=== PATIENT | female | born 1990 | race Caucasian/White ===

== ENCOUNTER 2017-06-04 07:40 | Emergency (ER) | payer OTHER ==
[2017-06-04 07:55] VITALS: TEMP 98.2
--- NOTE | 2017-06-04 07:57 | EDPHY ---
H & P Stated Complaint: Fall on ice last night. LOC Now dizzy, ringing in ears Time Seen by Provider: 06/04/17 07:56 HPI/ROS: CHIEF COMPLAINT: Headache and neck pain following a mechanical fall HISTORY OF PRESENT ILLNESS: The patient presents to the ED with complaints of occipital headache and neck pain after she slipped and fell on the ice last night. The patient fell backwards striking her occipital skull. She is uncertain whether she had a loss of consciousness. The patient does report some tenderness. She reports mild nausea and a moderate headache. The patient denies any focal numbness or weakness. She denies any chest pain, back pain, extremity pain or additional complaints. REVIEW OF SYSTEMS: A comprehensive 10 point review of systems is otherwise negative aside from elements mentioned in the history of present illness. Source: Patient Exam Limitations: No limitations - Personal History LMP (Females 10-55): 22-28 Days Ago Current Tetanus/Diphtheria Vaccine: Yes Current Tetanus Diphtheria and Acellular Pertussis (TDAP): Yes - Medical/Surgical History Hx Asthma: Yes Hx Chronic Respiratory Disease: No Hx Diabetes: No Hx Cardiac Disease: No Hx Renal Disease: No Hx Cirrhosis: No Hx Alcoholism: No Hx HIV/AIDS: No Hx Splenectomy or Spleen Trauma: No Other PMH: Denies - Social History Smoking Status: Never smoked - Physical Exam Exam: General Appearance: Alert, no distress Head: Occipital tenderness to palpation, small scalp hematoma Eyes: Pupils equal, round, reactive ENT, Mouth: No hemotympanum, no oral trauma Neck: Tenderness to palpation in the mid cervical region, poorly localized Respiratory: No chest wall tender, subcutaneous air, lungs clear bilaterally Cardiovascular: Regular rate and rhythm Abdomen: Abdomen is soft and nontender, pelvis stable Skin: No lacerations, No abrasion Back: No midline T/L/S pain Extremities: Nontender, full range of motion Neurological: A&Ox3, normal motor function, normal sensory exam Constitutional: Initial Vital Signs Temperature (C) 36.8 C 06/04/17 07:51 Heart Rate 85 06/04/17 07:51 Respiratory Rate 17 06/04/17 07:51 Blood Pressure 118/83 H 06/04/17 07:51 O2 Sat (%) 98 06/04/17 07:51 O2 Delivery Mode Room Air Allergies/Adverse Reactions: amoxicillin Allergy (Verified 06/04/17 07:50) cefixime [From Suprax] Allergy (Verified 06/04/17 07:50) cephalexin [From Keflex] Allergy (Verified 06/04/17 07:50) sulfamethoxazole [From Bactrim] Allergy (Verified 06/04/17 07:50) trimethoprim [From Bactrim] Allergy (Verified 06/04/17 07:50) Home Medications: Medication Instructions Recorded NK [No Known Home Meds] 06/04/17 Medical Decision Making - Diagnostics Imaging Results: Imaging Impressions Head CT 06/04/17 08:04 Impression: No acute intracranial findings. Findings discussed with Quincy Ellsworth 06/04/2017 at 8:57. Cervical spine x-ray: Images reviewed by myself, negative for acute fracture or dislocation ED Course/Re-evaluation: The patient presents to the ED for evaluation of headache and neck pain following a mechanical fall last night. Given the complaints of severe headache , unknown loss of consciousness and a reported history of alcohol consumption a CT scan of the brain was ordered to exclude intracranial hemorrhage or skull fracture. Fortunately the results of this study were normal. The patient did have some mild cervical tenderness. Cervical x-ray does demonstrate some mild deformity at C5 of undetermined chronicity. The patient has no focal tenderness at this level. I feel that this is likely a chronic finding and unrelated to her presentation today. I re-evaluated the patient at 9:00 a.m.. She will be discharged home with customary concussion aftercare instructions. She is advised to follow up with our on-call spine surgeon for any persistent cervical pain. Differential Diagnosis: Differential diagnosis considered includes intracranial hemorrhage, skull fracture, concussion, cervical fracture Departure - Departure Disposition: Home, Routine, Self-Care Clinical Impression: Concussion, Cervical strain, acute Condition: Good Instructions: Cervical Strain (ED) Additional Instructions: 1. Take Ibuprofen or Motrin 600 mg by mouth three times a day. 2. Follow up with the supervisory training specialist, Dr. Aguayo, you have been referred to for any persistent neck pain. 3. Concussion aftercare as directed. 4. Please follow up with our concussion specialist, Dr. Jordan, for any persistent headache, neurologic symptoms or other concerns which persists past 5 days. Referrals: Romel Aguayo MD [Medical Doctor] - As per Instructions Camille Jordan MD [Medical Doctor] - As per Instructions
[2017-06-04 09:27] VITALS: BP 114/65; PULSE 64; RESP 16; O2SAT 95
== END 2017-06-04 09:25 | disposition home or self-care (01) ==
DX: S06.0X0A Concussion without loss of consciousness, initial encounter (principal); S16.1XXA Strain of muscle, fascia and tendon at neck level, initial encounter; J45.909 Unspecified asthma, uncomplicated; W00.0XXA Fall on same level due to ice and snow, initial encounter